=== PATIENT | female | born 2000 | race Caucasian/White ===

== ENCOUNTER 2020-04-28 17:25 | Observation (INO) | payer OTHER ==
[~2020-04-28] VITALS: Ht 160 cm; Wt 61.4 kg
[~2020-04-28 17:25] MED LIST: ACETAMINOPHEN W1 TA6 PO; CELEXA20 MG PO; INTUNIV1 MG PO
[2020-04-28 17:56] LABS: BASO % 0.3 % (0.0-2.0); EOS # 0.1 (0.0-0.7); EOS % 1.5 % (0-4.0); GRAN # 4.4 (1.4-6.5); GRAN % 58.1 % (42.2-75.2); HEMATOCRIT 38.8 % (37.0-47.0); HEMOGLOBIN 13.6 g/dl (12.5-16.0); LYMPH # 2.7 (1.2-3.4); MEAN CELL VOLUME 82 fl (80.0-100.0); MEAN CORPUSCULAR HEMOGLOBIN 29 pg (27.0-31.0); MEAN CORPUSCULAR HGB CONC 35 g/dl (33.0-37.0); MONO # 0.4 (0.1-0.6); PLATELET COUNT 242 K/mm3 (130-400); RED BLOOD COUNT 4.73 M/mm3 (4.10-5.30); REDCELL DISTRIBUTION WIDTH-CV 12.4 % (11.5-14.5)
[2020-04-28 18:13] LABS: ALANINE AMINOTRANSFERASE 18 U/L (4-34); ALBUMIN 4.7 gm/dL (3.5-5.0); ALKALINE PHOSPHATASE 71 U/L (50-136); ANION GAP 15 mmol/L (7-16); AST,SGOT 31 U/L (15-37); BILIRUBIN,TOTAL 0.7 mg/dL (0.0-1.0); BLOOD UREA NITROGEN 12 mg/dL (7-17); CALCIUM 9.6 mg/dL (8.4-10.2); CARBON DIOXIDE 18 mmol/L (22-30); CHLORIDE 105 mmol/L (98-107); CREATININE, serum 0.86 (0.52-1.25); GLUCOSE 125 mg/dL (74-106); POTASSIUM 3.3 mmol/L (3.4-5.0); SODIUM 138 mmol/L (137-145); TOTAL PROTEIN 8.4 gm/dL (6.4-8.2)
[2020-04-28 18:24] LABS: ALCOHOL(ethanol),MEDICAL < 10 mg/dL
[2020-04-28 18:29] LABS: PROLACTIN 190.4 ng/mL (3.0-18.6)
[2020-04-28] MEDS ORDERED: FORFIVO XL450 MG PO (20:58)
[2020-04-28] MEDS ORDERED: ATARAX 10MG10 MG/TAB PO (20:59)
[2020-04-28 22:12] VITALS: BP 131/70; PULSE 93; TEMP 98
--- NOTE | 2020-04-28 22:19 | NUR ---
Awake, alert, oriented x 4, ablet to clearly communicate all needs, ambulates w/o difficulty, trying to eat at this time, denies pain, hu aura for seizure, seizure precautions in place, updated patient on plan of care.
[2020-04-29 00:32] VITALS: BP 140/55; PULSE 82; TEMP 97.9
[2020-04-29 02:10] LABS: COLLECTION METHOD CLEAN CATCH
[2020-04-29 02:20] LABS: MUCOUS Present /lpf; PH 8 (5-8); SQUAMOUS EPITHELIAL 0-2 /hpf; URINE APPEARANCE Clear; URINE BACTERIA None Seen /hpf; URINE BILIRUBIN Negative (NEGATIVE); URINE BLOOD 2+ (NEGATIVE); URINE COLOR Yellow; URINE GLUCOSE Negative (NEGATIVE); URINE KETONE 1+ (NEGATIVE); URINE LEUKOCYTE ESTERASE Negative (NEGATIVE); URINE NITRATE Negative (NEGATIVE); URINE PROTEIN(semi-quant) 1+ (NEGATIVE); URINE RBC 0-2 /hpf; URINE UROBILINOGEN Negative (NEGATIVE)
[2020-04-29 02:21] LABS: TRICYCLIC ANTIDEPRESS URINE NEGATIVE
[2020-04-29 05:02] VITALS: BP 122/53; PULSE 70; TEMP 97.9
[2020-04-29 05:55] LABS: BASO % 0.4 % (0.0-2.0); EOS # 0.1 (0.0-0.7); EOS % 1.4 % (0-4.0); GRAN # 5.1 (1.4-6.5); GRAN % 65.2 % (42.2-75.2); HEMOGLOBIN 12.6 g/dl (12.5-16.0); LYMPH # 2.1 (1.2-3.4); LYMPH % 27.5 % (20.0-51.0); MEAN CELL VOLUME 84 fl (80.0-100.0); MEAN CORPUSCULAR HEMOGLOBIN 30 pg (27.0-31.0); MEAN CORPUSCULAR HGB CONC 35 g/dl (33.0-37.0); MEAN PLATELET VOLUME 10.5 fl (7.4-10.4); MONO # 0.4 (0.1-0.6); MONO % 5.2 % (1.7-9.3); PLATELET COUNT 213 K/mm3 (130-400); RED BLOOD COUNT 4.26 M/mm3 (4.10-5.30); REDCELL DISTRIBUTION WIDTH-CV 12.7 % (11.5-14.5)
[2020-04-29 06:05] LABS: CALCIUM 8.8 mg/dL (8.4-10.2); CREATININE, serum 0.77 (0.52-1.25); POTASSIUM 4.6 mmol/L (3.4-5.0)
[2020-04-29 06:08] LABS: HEMATOCRIT 35.6 % (37.0-47.0)
--- NOTE | 2020-04-29 06:30 | NUR ---
Pt resting with eyes closed, even non labored breathing
[2020-04-29 07:12] VITALS: BP 111/42; PULSE 71; TEMP 98.1
--- NOTE | 2020-04-29 08:37 | NUR ---
Pt doing well. She has no complaints this morning. She states that she wishes she didn't have to stay, but her mom feels that it is best. Denies any pain, but does report that her body feels a little achy. No needs verbalized, call light within reach, will continue to monitor
[2020-04-29 11:32] VITALS: BP 129/70; PULSE 71; TEMP 98.1
[2020-04-29] MEDS ORDERED: WELLBUTRIN XL300 M1 PO (12:12)
--- NOTE | 2020-04-29 12:20 | NUR ---
Pt doing well. She has showered and is excited to be able to go home. Dr Stanford also in to see patient and is okay with discharge. Pt states that her mom will be here around 2:00 to pick her up. No other needs, she did eat a late breakfast, denies wanting lunch at this time
--- NOTE | 2020-04-29 13:19 | NUR ---
Reviewed discharge instructions with patient. INT removed from right AC. Pt states that her mom is on her way. Informed her to notify nursing when she arrives so that we can escort her out.
--- NOTE | 2020-04-29 15:26 | NUR ---
SW met with patient about DC. Patient reports that she resides on [address] in the [facility]. Patient reports that she is and her is in [facility] [phone]. Patient indicated that she is also [employer]. Patient shares that she has transportation home and her Step Mother is flying in to care for her Art[place] [phone]. Denies using any DME's. Patient shares that she uses [facility] for medications. POA on file with [facility].
== END 2020-04-29 14:49 | disposition home or self-care (01) ==
LOC: COL.ER 17:25 → SURG 19:19
PROVIDERS: Nurse Practitioner Primary Care; Student in an Organized Health Care Education/Training Program; ADMIT Student in an Organized Health Care Education/Training Program
DX: G40.89 Other seizures (principal); E87.6 Hypokalemia; F32.9 Major depressive disorder, single episode, unspecified; F41.9 Anxiety disorder, unspecified; Z79.899 Other long term (current) drug therapy; Z87.891 Personal history of nicotine dependence; Z82.49 Family history of ischemic heart disease and other diseases of the circulatory system
CPT/HCPCS: 99223-AI; G0378; J7030

== ENCOUNTER → 2020-10-06 | Outpatient (CLI) | payer OTHER ==
[~2020-10-06] MED LIST changes: +ATARAX 10MG10 MG/TAB PO; +FORFIVO XL450 MG PO; +WELLBUTRIN XL300 M1 PO
== END ==
LOC: COL.CARD 09:51
DX: G40.909 Epilepsy, unspecified, not intractable, without status epilepticus (principal)